=== PATIENT | female | born 1970 | race African-American/Black ===

== ENCOUNTER 2016-06-23 23:49 | Emergency (ER) | payer MEDICARE, OTHER ==
[~2016-06-23 23:49] MED LIST: FLEXERIL10 MG PO; METFORMIN PO; VICODIN 5/1 TAB 5/50 PO
== END 2016-06-23 23:50 | disposition home or self-care (01) ==
LOC: CED 23:49
DX: R07.0 Pain in throat (principal); E11.9 Type 2 diabetes mellitus without complications; I10 Essential (primary) hypertension; Z91.018 Allergy to other foods
CPT/HCPCS: 87651; 99282; 99283

== ENCOUNTER 2016-07-19 23:09 | Emergency (ER) | payer MEDICARE, OTHER ==
--- NOTE | ~2016-07-19 | CT114 ---
[facility] A Service of [facility] & [facility] RADIOLOGY TEXT RESULTS PATIENT: ROMY BULLARD LOCATION: [facility] : 74 UNIT #: [id number] AGE: [address]: Dexter Flor MD SEX: F ORDER DR: [id number] [facility] [address] [place], [place] [address] [id number] E MR#: [id number] Acc #: [id number] NAME: ROMY BULLARD : 1970 SEX: F STUDY DATE/TIME: 07/20/2016 02:04 UNIT: [facility] ROOM: STUDY DESCRIPTION: CT Soft Tissue Neck W Cont Attending Physician: Dexter Flor M.D. Ordering Physician: Onur Marrufo D.O. Primary Care Physician: Bobby Schneider M.D. MEDICAL IMAGING REPORT This report is preliminary unless electronic signature is present EXAM Neck CT 07/20/2016 at 02:04 INDICATION Sore throat for 1 week with bilateral ear pain. Right side neck pain. TECHNIQUE Axial images were obtained through the neck following IV contrast administration. Multiplanar reformats were obtained. Comparison made with a noncontrast cervical spine CT dated 09/21/2009. This CT exam was performed with one or more of the following radiation dose reduction techniques: automatic exposure control, adjustment of mA and/or kV according to patient size, and iterative reconstruction. FINDINGS Lung apices are clear. Thyroid grossly normal. Images through the larynx are limited due to motion, probably due to phonation. Epiglottis is normal. The floor of the mouth is normal. Salivary glands are normal. There is diffuse enlargement of the right tonsils with a small tonsillar abscess measuring about 6 mm. There is surrounding edema in the soft tissues which extends laterally and inferiorly to about the level of the right submandibular gland. No left-side tonsillar abscess is seen. The prevertebral soft tissues are normal. There is bilateral cervical adenopathy, probably reactive. The largest node on the right side behind the submandibular gland measures about 1.6 cm x 1.7 cm. Similar node on the left side of the neck measures 1.7 cm x 1.5 cm. Paranasal sinuses are clear. Mastoid air cells and middle ear cavities are clear. The cervical spine shows normal alignment. IMPRESSION 1. There is a 6 mm right-side tonsillar abscess with diffuse enlargement [facility] A Service of [facility] & [facility] RADIOLOGY TEXT RESULTS PATIENT: ROMY BULLARD LOCATION: [facility] : 74 UNIT #: [id number] AGE: [address]: Dexter Flor MD SEX: F ORDER DR: of the right side tonsil exerting local mass effect. There is some inflammatory fat stranding that extends down and lateral toward the right submandibular gland. The submandibular glands and the parotid glands however are both normal. 2. There is bilateral reactive cervical adenopathy. 3. The mastoid air cells and middle ear cavities are clear. 4. The epiglottis is normal. Dictated by... Walter Gardiner Jr., M.D. THIS IS AN ELECTRONICALLY VERIFIED REPORT Walter Gardiner Jr., M.D. at 07/20/2016 5:56 AM JACKY/inocencio TD: 07/20/2016 05:00 JOB #: [id number] MEDICAL IMAGING REPORT Page 1 of 1 COPY
[2016-07-20 01:12] LABS: BASOPHIL# 0.1 X10e3 (0-0.3); BASOPHIL% 0.6 % (0-2.5); DIFF IND NO; EOSINOPHIL# 0.1 X10e3 (0-0.7); EOSINOPHIL% 0.5 % (0.0-7.0); HEMATOCRIT 42.1 % (35.0-45.0); HEMOGLOBIN 13.9 gm/dL (12.0-16.0); LYMPHOCYTE# 2.8 X10e3 (1.0-3.5); LYMPHOCYTE% 24.6 % (17.0-45.0); MEAN CORPUSCULAR HEMOGLOBIN 29.8 PG (28-34); MEAN CORPUSCULAR HGB CONC 33.1 g/dL (30-36); MEAN PLATELET VOLUME 8.7 FL (6.5-11.5); MONOCYTE# 0.7 X10e3 (0-1.0); MONOCYTE% 6.1 % (3.0-12.0); NEUTROPHIL# 7.7 X10e3 (1.5-7.1); NEUTROPHIL% 68.2 % (40-75); PLATELET COUNT 230 X10e3 (140-420); RED BLOOD COUNT 4.68 X10e (3.90-5.30); RED CELL DISTRIBUTION WIDTH 12.7 % (11.0-15.5); WHITE BLOOD COUNT 11.3 X10e3 (4.0-10.5)
[2016-07-20 01:36] LABS: CREATININE SERUM 0.6 mg/dL (0.6-1.4); GLOM FILT RATE Estimated 129.4 mL/min (>60); POTASSIUM 4.1 mmol/L (3.5-5.1)
== END 2016-07-20 05:05 | disposition home or self-care (01) ==
LOC: CED 23:09
PROVIDERS: Emergency Medicine
DX: J36 Peritonsillar abscess (principal); E11.9 Type 2 diabetes mellitus without complications; I10 Essential (primary) hypertension; F17.200 Nicotine dependence, unspecified, uncomplicated; Z90.49 Acquired absence of other specified parts of digestive tract; Z91.09 Other allergy status, other than to drugs and biological substances
CPT/HCPCS: 36415; 70491; 80048; 85025; 87651; 96361; 96365; 96367; 96375; 96376; 99284; J0696; J2270; J2405; Q9967